=== PATIENT | male | born 1940 | race Caucasian/White ===

== ENCOUNTER 2018-10-29 09:12 | Day surgery (SDC) ==
[2018-10-29] MEDS ORDERED: DIPRIVAN 20 ML VIAL IVP ONE (10:54)
[2018-10-29] MEDS ORDERED: SUBLIMAZE ONE (10:54)
--- NOTE | 2018-10-30 13:57 | OP ---
INDICATIONS FOR PROCEDURE: 78 year old gentleman presents for endoscopy and colonoscopy exam. He has history of short segments Ac's disease. He also has a history of adenomatous polyps with his last colonoscopy 3 years ago. MEDICATIONS: SEE ANESTHESIA NOTES. PROCEDURE: ENDOSCOPY. ESOPHAGEAL BIOPSY COLONOSCOPY. SNARE POLYPECTOMY. REPORT: The risks, benefits, alternatives and limitations were discussed in detail with the patient. Informed consent was obtained. After adequate sedation was achieved, the video endoscope was introduced in the posterior pharynx and esophagus under direct vision and easily advanced down to the second portion of the duodenum. I then slowly withdrew. In the second portion of the duodenum there was a small AVM. The mucosa was otherwise unremarkable as well as the bulb. The scope was withdrawn back in the stomach and the antrum body was relative unremarkable and the scope was retroflexed to look at the cardia fundus which was unremarkable except other than the hiatal hernia. The scope was anteflexed and withdrawn back through the esophagus there was small hiatal hernia. The GE junction was irregular. There was one tongue of gastric type mucosa extending proximal for close to 1cm and a second tongue extending proximal for a few millimeters. Biopsies were obtained from the tongues as well as four quadrants for histological review. The esophagus was otherwise unremarkable. The patient tolerated the procedure well with stable vital signs and pulse oximetry throughout. The patient's bed was turned. A digital rectal exam revealed good tone and no masses. A digital rectal exam revealed good tone, no masses. The colonoscope was introduced into the rectum and advanced under direct visual guidance to the cecum. The cecum was identified by the appendiceal orifice and IC valve. I then slowly withdrew the scope in circumferential manner and examined quite carefully. I looked on the proximal and distal sides of folds and flexures as best as possible. I was able to retroflex the scope in the right colon and the left colon to increase visualization. At the hepatic flexure there is a diminutive 4mm polyp that sessile and was removed and destroyed by snare technique. In the middistal transverse colon there is a sessile 6mm polyp that I removed by snare technique. In the descending colon there is a 6-7mm semi- sessile polyp removed by snare technique. In the sigmoid there is scattered small mouth diverticuli. No other abnormalities were noted including on retroflex view of the anal canal. The prep was good. The withdraw time was 11 minutes and 25 seconds. The patient tolerated the procedure well with stable vital signs and pulse oximetry throughout. IMPRESSION: 1. Short segment Ac's 2. Small Hiatal hernia 3. Small Duodenal AVM 4. Three colonic polyps successfully removed 5. Sigmoid diverticulosis RECOMMENDATIONS: 1. High fiber diet 2. Strict reflux precautions 3. Await esophageal biopsy results if there is no evidence of dysplasia and atypia I suggest a repeat endoscopy examination in three years if it is clinically well. 4. Await colon polyp pathology. If the path is unremarkable and he is clinically well I suggest a repeat colonoscopy examination again in three years. 5. We will see him back in the office as needed. CC: Dr. Kenroy BAEZ
[2018-10-30 15:24] VITALS: BP 121/54
== END 2018-10-29 12:10 | disposition home or self-care (01) ==
LOC: SURG 09:12
PROVIDERS: ATTEND Internal Medicine Gastroenterology
DX: Z86.010 Personal history of colon polyps (principal); K22.70 Barrett's esophagus without dysplasia; Q27.33 Arteriovenous malformation of digestive system vessel; K44.9 Diaphragmatic hernia without obstruction or gangrene; K57.90 Diverticulosis of intestine, part unspecified, without perforation or abscess without bleeding; D12.4 Benign neoplasm of descending colon; D12.3 Benign neoplasm of transverse colon